=== PATIENT | male | born 1955 | race Caucasian/White ===

== ENCOUNTER 2018-08-14 17:56 | Emergency (ER) | payer MEDICARE ==
[2018-08-14 19:24] LABS: #Basophils 0.1 thou/uL (0.0-0.2); #Eosinphils 0.2 thou/uL (0.0-0.7); #Lymphocytes 1.6 thou/uL (1.20-3.40); #Monocytes 0.8 thou/uL (0.11-0.59); #Neutrophils 7.4 thou/uL (1.40-6.50); %Basophils 1.1 % (0.0-1.0); %Lymphocytes 15.7 % (21.0-51.0); %Monocytes 7.5 % (0.0-10.0); %Neutrophils 73.7 % (42.0-75.0); Hemoglobin 15.5 g/dL (14.0-18.0); Mean Corpuscular HGB CONC 33.3 g/dL (32.0-36.0); Mean Corpuscular Hemoglobin 30.7 pg (27.0-31.0); Mean Corpuscular Volume 92.3 fL (78.0-98.0); Mean Platelet Volume 6.9 fL (7.4-10.4); Platelet Count 398 thou/uL (130-400); RBC Distribution Width 11.6 % (11.5-14.5); Red Blood Cell (RBC) Count 5.04 mill/uL (4.70-6.10)
[2018-08-14 19:40] LABS: ALT (SGPT) 16 U/L (8-55); AST (SGOT) 13 U/L (5-34); Albumin 4.1 g/dL (3.4-4.8); Alkaline Phosphatase 100 U/L (40-150); Anion Gap 14 mmol/L (10-20); BUN (Urea Nitrogen) 12 mg/dL (8.4-25.7); Bilirubin, Total 0.2 mg/dL (0.2-1.2); Calc. Creatinine Clearance 0 mL/min (70-130); Calcium 10.1 mg/dL (7.8-10.44); Carbon Dioxide 30 mmol/L (23-31); Chloride 100 mmol/L (98-107); Estimated GFR-MDRD 77; Globulin 3.5 g/dL (2.4-3.5); Glucose 100 mg/dL (80-115); Lipase 121 U/L (8-78); Potassium 4.5 mmol/L (3.5-5.1); Protein, Total 7.6 g/dL (5.8-8.1); Sodium 139 mmol/L (136-145)
[2018-08-14 20:50] LABS: Bilirubin Negative (Negative); Blood, Urine Negative (Negative); Clarity Clear (Clear); Glucose, Urine (Dipstick) Negative (Negative); Leukocyte Negative (Negative); Nitrite Negative (Negative); Protein, Urine (Dipstick) Negative (Neg-Trace); Specific Gravity, Urine 1.015 (1.005-1.030); Urobilinogen 0.2 mg/dL (0.2-1.0)
[2018-08-14] MEDS ORDERED: Ondansetron PF 4 MG/2 ML Vial ONE (21:15)
--- NOTE | 2018-08-14 21:28 | CT ---
FEXAM: CT abdomen and pelvis with IV contrast PROVIDED CLINICAL HISTORY: Abdominal pain COMPARISON: None FINDINGS: The visualized lung bases are free of significant opacity. There is conspicuous and somewhat irregular apparent mucosal thickening involving the body of the sto mach. There are several areas of mucosal ulceration, the largest of which is located along the greate r curvature of the stomach distally and approximates the serosal surface. There is stranding of the f at immediately adjacent to this and lack of a distinct fat plane between the stomach and the adjacent distal transverse colon. There is no evidence for extraluminal gas or a intraperitoneal fluid collec tion. There are numerous peritoneal based soft tissue masses present within the abdomen, the largest of whi ch is located within the greater omentum right of midline and measures at least 8.4 cm in transverse dimension and at least 3.3 cm in AP dimension. There is a small amount of free pelvic fluid. There is a primarily fat containing right inguinal hernia. Soft tissue density within the herniated f at is of uncertain etiology, measuring approximately 1.1 cm and possibly reflecting a metastatic depo sit. The liver, spleen, pancreas, kidneys and adrenal glands demonstrate an unremarkable CT appearance. Vascular calcifications are noted involving the abdominal aorta and its branches. The osseous structu res demonstrate no concerning lytic or blastic lesions. Lumbar spine degenerative changes are seen. IMPRESSION: 1. Irregular apparent mucosal thickening involving the stomach as described above with associated foc i of ulceration compatible with malignancy. The largest focus of ulceration approximates the serosal surface without definite evidence for perforation. There is an indistinct fat plane between the adjac ent transverse colon and gastrocolic fistula cannot be excluded. 2. Peritoneal metastatic disease. 3. Small fat-containing right inguinal hernia.
== END 2018-08-14 21:54 | disposition home or self-care (01) ==
LOC: SCSER 17:56
DX: K40.90 Unilateral inguinal hernia, without obstruction or gangrene, not specified as recurrent (principal); C78.6 Secondary malignant neoplasm of retroperitoneum and peritoneum; F17.210 Nicotine dependence, cigarettes, uncomplicated
CPT/HCPCS: 36415; 74177; 80053; 81003; 83690; 85025; 93005; 96361; 96374; J2405

== ENCOUNTER 2018-08-27 14:55 | Outpatient (CLI) | payer MEDICARE ==
[~2018-08-27 14:55] MED LIST: Iopamidol 370 76% 100 ML VIAL ONE
--- NOTE | 2018-08-27 15:52 | CT ---
EXAM: CT of the chest with contrast HISTORY: Gastric neoplasm with metastatic disease. COMPARISON: CT abdomen/pelvis 08/14/2018 TECHNIQUE: Multiple contiguous axial images were obtained in a CT the chest with contrast. Coronal re formats were performed. FINDINGS: HEART: Normal in size without focal cardiac abnormality MEDIASTINUM: No hilar or mediastinal lymphadenopathy. LUNGS: No focal infiltrates or masses. A calcified granuloma is seen in the lingula. No suspicious pu lmonary nodules are identified. PLEURAL SPACE: No pneumothorax or pleural effusion. CHEST WALL SOFT TISSUES: Unremarkable OSSEOUS STRUCTURES: Degenerative changes in the spine. VISUALIZED SUBDIAPHRAGMATIC STRUCTURES: Please see CT from 08/14/2018 for findings below the diaphragm. IMPRESSION: No evidence of intrathoracic metastatic disease.
== END 2018-08-27 14:56 | disposition home or self-care (01) ==
LOC: BICCT 14:55
PROVIDERS: ATTEND Internal Medicine Hematology & Oncology
DX: C80.1 Malignant (primary) neoplasm, unspecified (principal); C79.9 Secondary malignant neoplasm of unspecified site
CPT/HCPCS: 71260

== ENCOUNTER 2018-09-05 12:30 | Day surgery (SDC) | payer MEDICARE ==
[2018-09-04 17:42] VITALS: BMI 25.0
[2018-09-05 13:27] LABS: #Eosinphils 0.4 thou/uL (0.0-0.7); #Lymphocytes 1.8 thou/uL (1.20-3.40); #Monocytes 0.7 thou/uL (0.11-0.59); #Neutrophils 5.6 thou/uL (1.40-6.50); %Basophils 0.6 % (0.0-1.0); %Eosinophils 5.1 % (0.0-10.0); %Lymphocytes 21.5 % (21.0-51.0); %Monocytes 7.7 % (0.0-10.0); %Neutrophils 65.2 % (42.0-75.0); Hemoglobin 14.7 g/dL (14.0-18.0); Mean Corpuscular Hemoglobin 31.5 pg (27.0-31.0); Mean Corpuscular Volume 95.3 fL (78.0-98.0); Mean Platelet Volume 6.9 fL (7.4-10.4); Platelet Count 353 thou/uL (130-400); RBC Distribution Width 11.7 % (11.5-14.5); Red Blood Cell (RBC) Count 4.67 mill/uL (4.70-6.10); White Blood Cell (WBC) Count 8.5 thou/uL (4.8-10.8)
[2018-09-05 13:46] LABS: Anion Gap 13 mmol/L (10-20); BUN (Urea Nitrogen) 13 mg/dL (8.4-25.7); Calc. Creatinine Clearance 69 mL/min (70-130); Calcium 9.9 mg/dL (7.8-10.44); Carbon Dioxide 31 mmol/L (23-31); Chloride 99 mmol/L (98-107); Estimated GFR-MDRD 67; Glucose 90 mg/dL (80-115); Potassium 4.6 mmol/L (3.5-5.1); Sodium 138 mmol/L (136-145)
[2018-09-05] MEDS ORDERED: Fentanyl 100 MCG/2 ML VIAL ONE ×3 (14:26→16:09)
[2018-09-05] MEDS ORDERED: Bupivacaine/Epinephrine 0.25% 30 ML VIAL ONE (14:27)
[2018-09-05] MEDS ORDERED: PHENYLEPHRINE-NS 100 MCG/ML 10 ML SYRINGE ONE (15:56)
[2018-09-05] MEDS ORDERED: Rocuronium Bromide 10 MG/ML (10ML VIAL) ONE (15:56)
[2018-09-05] MEDS ORDERED: PROPOFOL 200 MG/20 ML VIAL ONE (15:56)
[2018-09-05] MEDS ORDERED: Lidocaine 1% PF 5 ML VIAL ONE (15:56)
[2018-09-05] MEDS ORDERED: Ketorolac Tromethamine 30 MG/ML VIAL ONE (15:56)
[2018-09-05] MEDS ORDERED: Glycopyrrolate 0.2 MG/ML 5 ML SYRINGE ONE (15:56)
[2018-09-05] MEDS ORDERED: HYDROcodone/Acetaminophen 5/325 mg Tablet ONE (17:00)
--- NOTE | 2018-09-06 21:02 | OP ---
DATE OF PROCEDURE: 09/05/2018 PREOPERATIVE DIAGNOSIS: Abdominal carcinomatosis. POSTOPERATIVE DIAGNOSIS: Abdominal carcinomatosis. PROCEDURE PERFORMED: Laparoscopic partial omentectomy and biopsy of omental mass. ANESTHESIA: General. ESTIMATED BLOOD LOSS: Minimal. COMPLICATIONS: None. SPECIMEN: Omental mass. DESCRIPTION OF PROCEDURE: The patient was taken to the operating room and laid supine on the operating room table. After general anesthetic was obtained, a Serrano was placed. The abdomen was shaved, prepped, and draped in a sterile fashion. A curved incision was made below the umbilicus. Cautery was dissected down to and scored the fascia. Abdominal cavity was entered bluntly using a Valentina clamp. A 5 mm trocar was placed and high-flow pneumoperitoneum was obtained. Left and right abdominal 5 mm ports were placed as well. There was an adhesion to the posterior umbilicus. This adhesion was taken down exposing a tumor nodule at the umbilicus. This was able to be removed through the umbilical port site. There was a large mass-like effect over the proximal transverse colon in the right upper quadrant, but there were some smaller nodules present along the mid transverse colon and omentum. This was taken using the LigaSure, placed in an EndoCatch bag and brought out through the umbilical incision. There was no ongoing bleeding. All port sites were infiltrated using local anesthetic. All ports were removed under camera visualization. Pneumoperitoneum was let down. Maxon used to close the fascial defect below the umbilicus. All incisions were irrigated and closed using 4-0 Monocryl and Dermabond. The patient was sent to Recovery in stable condition. All instrument counts, needle counts, lap counts were correct. Job ID: [id number]
== END 2018-09-05 17:30 | disposition home or self-care (01) ==
LOC: SDC 12:30
PROVIDERS: ATTEND Surgery
PROC: 0DBU4ZX Excision of Omentum, Percutaneous Endoscopic Approach, Diagnostic (ICD-10-PCS; principal; 2018-09-05)
DX: C48.1 Malignant neoplasm of specified parts of peritoneum (principal); F17.210 Nicotine dependence, cigarettes, uncomplicated; Z79.899 Other long term (current) drug therapy; Z88.2 Allergy status to sulfonamides
CPT/HCPCS: 80048; 85025; 88305; 88341; 88342; 88360; J0690; J1885; J2001; J2704; J3010

== ENCOUNTER 2018-09-13 09:57 | Outpatient (CLI) | payer MEDICARE ==
--- NOTE | 2018-09-13 13:50 | PET ---
EXAM: PET/CT HISTORY: Gastric cancer. Initial staging TECHNIQUE: PET scanning with CT attenuation correction was performed from the base of the brain to the proximal thighs following the intravenous administration of 11 millicuries [id number]-[id number]. COMPARISON: None. CORRELATION: CT abdomen and pelvis of 08/14/[address] chest of 08/27/2018 FINDINGS: Focally increased uptake is seen in the stomach with an SUV of 5.3 likely due to known gastric malign glen No alba hypermetabolism is seen in the neck chest or axillae. There are hypermetabolic lymph nodes i n the abdomen and pelvis with maximum SUVs of 6 in the left para-aortic, 6.6 in the right common iliac, 7.6 in the left common iliac, 6.2 in the right external iliac, 6 in the left external iliac an d 5 in the right inguinal lymph nodes. Foci of increased uptake in the omentum are seen with a maximum SUV of 9. This is consistent with per itoneal carcinomatosis. No hypermetabolic pulmonary nodules, liver, adrenal or skeletal lesions are seen. There is physiologic activity in the GI and tracts and the visualized portions of the brain. The CT scan used for attenuation correction demonstrates no evidence of pleural effusions or ascites. IMPRESSION: Gastric malignancy with peritoneal carcinomatosis and lymph alba metastases in the abdomen and pelvi s
== END 2018-09-13 09:58 | disposition home or self-care (01) ==
LOC: PET 09:57
PROVIDERS: ATTEND Internal Medicine Hematology & Oncology
DX: C16.9 Malignant neoplasm of stomach, unspecified (principal); C78.6 Secondary malignant neoplasm of retroperitoneum and peritoneum; C77.2 Secondary and unspecified malignant neoplasm of intra-abdominal lymph nodes
CPT/HCPCS: 78815; A9552

== ENCOUNTER 2018-09-17 11:23 | Day surgery (SDC) | payer MEDICARE ==
[2018-09-14 17:18] VITALS: BMI 24.7
[~2018-09-17 11:23] MED LIST changes: +Bupivacaine/Epinephrine 0.25% 30 ML VIAL ONE; -Iopamidol 370 76% 100 ML VIAL ONE; +Lidocaine 2% PF 5 ML VIAL ONE
[2018-09-17] MEDS ORDERED: PROPOFOL 20 ML ONE (11:42)
[2018-09-17] MEDS ORDERED: Fentanyl 100 MCG/2 ML VIAL ONE (11:43)
--- NOTE | 2018-09-17 13:09 | RAD ---
Portable frontal chest radiograph: 09/17/2018 COMPARISON: None HISTORY: Evaluate chest following Med-a-Port placement FINDINGS: Right Port-A-Cath noted, distal tip overlying the cavoatrial junction. No pneumothorax. Pato gs appear clear. IMPRESSION: Right-sided Port-A-Cath. No pneumothorax.
[2018-09-17] MEDS ORDERED: Lidocaine 1% PF 5 ML VIAL ONE (13:30)
[2018-09-17] MEDS ORDERED: PROPOFOL 200 MG/20 ML VIAL ONE (13:30)
--- NOTE | 2018-09-17 18:55 | OP ---
DATE OF PROCEDURE: 09/17/2018 PREOPERATIVE DIAGNOSIS: Gastric cancer. POSTOPERATIVE DIAGNOSIS: Gastric cancer. PROCEDURE PERFORMED: Tunneled central line and subcutaneous port (MediPort, CT injectable). ANESTHESIA: General. ESTIMATED BLOOD LOSS: Minimal. COMPLICATIONS: None. SPECIMEN: None. FINDINGS: Tip of the catheters was at atriocaval junction. DESCRIPTION OF PROCEDURE: The patient was taken to the operating room and laid supine on the operating room table. After sedation was obtained, bilateral neck and chest were prepped and draped in a sterile fashion. Local anesthetic was infiltrated over the right internal jugular vein. Internal jugular vein cannulated using a 22-gauge finder needle followed by a Seldinger needle. Wire was passed into superior vena cava under fluoro guidance. A small evangelist was made at the wire entrance site and a separate 3 cm incision made in the right upper chest. Subcutaneous pocket made below the lower incision. Tubing for the MediPort tunneled from the inferior to superior incision. Introducer sheath placed over the wire into the superior vena cava under fluoro guidance. The dilator and wire were removed. The end of the catheter sewed into the sheath. The sheath was peeled away. The tip of the catheter was at the atriocaval junction. MediPort tubing was cut to fit the MediPort at the lower incision, and connected to the MediPort, which was sewn to the chest wall in the subcutaneous pocket using Prolene. The MediPort draws blood and flushes without difficulty. It was flushed with a heparin flush. The wounds were closed using 3-0 Vicryl, 4-0 Monocryl, and Dermabond. The patient was then returned to Recovery in stable condition. All instrument counts, needle counts, and lap counts were correct. Job ID: [id number]
== END 2018-09-17 13:15 | disposition home or self-care (01) ==
LOC: SDC 11:23
PROVIDERS: ATTEND Surgery
PROC: 0JH63WZ Insertion of Totally Implantable Vascular Access Device into Chest Subcutaneous Tissue and Fascia, Percutaneous Approach (ICD-10-PCS; principal; 2018-09-17)
DX: C16.9 Malignant neoplasm of stomach, unspecified (principal); Z88.2 Allergy status to sulfonamides; Z79.891 Long term (current) use of opiate analgesic; Z79.899 Other long term (current) drug therapy
CPT/HCPCS: 36561; 71045; C1788; J0690; J1642; J2001; J2704; J3010

== ENCOUNTER 2018-12-13 12:04 | Outpatient (CLI) | payer MEDICARE ==
--- NOTE | 2018-12-13 15:04 | PET ---
PET SCAN WITH CT ATTENUATION CORRECTION: COMPARISON: 09/13/18. HISTORY: Malignant neoplasm of the body of the stomach. Patient has undergone treatment. Evaluate for response to treatment. TECHNIQUE: PET scanning with CT attenuation correction is performed from the base of the brain to the proximal t highs following the intravenous administration of 10.5 mCi F18-FDG. FINDINGS: HEAD/NECK: No abnormal FDG localization. CHEST: No abnormal FDG localization. ABDOMEN/PELVIS: The previously noted FDG avidity involving the stomach is less evident. The previously noted FDG avid ity involving the abdominal mesentery is also less evident. CT used for attenuation correction demons trates diffuse stranding of the abdominal mesentery which is presumed to be due to post-treatment rodrigue nge. FDG avidity noted in a right inguinal hernia is no longer present. There is nonspecific bowel wa ll thickening involving the distal descending colon and sigmoid colon, incompletely evaluated. Part o f the bowel wall thickening may be due to inadequate distention. Colonoscopy if clinically warranted. No retroperitoneal mass or lymphadenopathy. No evidence of abnormal FDG avidity. OSSEOUS STRUCTURES: No abnormal FDG avidity. Bilateral pars defects at L5 without significant spondylolisthesis. IMPRESSION: 1. Evidence for response to therapy. The previously noted FDG avidity in the stomach, as well as the abdomen has significantly reduced. The previously noted evidence of peritoneal carcinomatosis is les s evident. There is no significant FDG avidity. Stranding of the abdominal mesentery may represent po st-treatment change. 2. Bowel wall thickening as described above. Consider colonoscopy if clinically warranted. POS: RICHIE
== END 2018-12-13 12:05 | disposition home or self-care (01) ==
LOC: PET 12:04
PROVIDERS: ATTEND Internal Medicine Hematology & Oncology
DX: C16.2 Malignant neoplasm of body of stomach (principal); K92.89 Other specified diseases of the digestive system
CPT/HCPCS: 78815; A9552

== ENCOUNTER 2019-03-08 08:41 | Outpatient (CLI) | payer MEDICARE ==
--- NOTE | 2019-03-08 13:17 | PET ---
PET CT: HISTORY: A 63-year-old male with gastric cancer. Patient undergoing chemotherapy. Exam requested to evaluate r esponse to treatment. COMPARISON: PET CTs from 12/13/2018 and 09/13/2018. TECHNIQUE: PET scanning with CT attenuation correction was performed from the base of the brain through the prox imal thighs following the intravenous administration of 13 millicuries F18 fluorodeoxyglucose in the right-sided Mediport. FINDINGS: No alba hypermetabolism is noted in the neck, chest, axillae, abdomen, pelvis or inguinal regions. P reviously noted foci of increase uptake in the omentum have resolved. No hypermetabolic pulmonary nodules or liver, adrenal or skeletal lesions are seen. There is physiol ogic activity in the GI and tracts and in the visualized portions of the brain. The CT scan used for attenuation correction demonstrates no evidence of pericardial or pleural effusi ons or ascites. IMPRESSION: No evidence of metastatic disease. POS: RICHIE
== END 2019-03-08 08:42 | disposition home or self-care (01) ==
LOC: PET 08:41
PROVIDERS: ATTEND Internal Medicine Hematology & Oncology
DX: C16.9 Malignant neoplasm of stomach, unspecified (principal)
CPT/HCPCS: 78815; A9552

== ENCOUNTER 2019-06-04 11:52 | Observation (INO) | payer MEDICARE ==
[~2019-06-04 11:52] MED LIST changes: -Bupivacaine/Epinephrine 0.25% 30 ML VIAL ONE; +Esmolol 100 MG/10 ML VIAL ONE; +Labetalol HCl 100 MG/20 ML VIAL ONE; +Lidocaine 1% PF 5 ML VIAL ONE; -Lidocaine 2% PF 5 ML VIAL ONE; +Ondansetron PF 4 MG/2 ML Vial ONE; +PHENYLEPHRINE-NS 100 MCG/ML 10 ML SYRINGE ONE; +PROPOFOL 200 MG/20 ML VIAL ONE; +Rocuronium Bromide 10 MG/ML (10ML VIAL) ONE; +ePHEDrine/0.9% NaCl/PF SYRINGE 50 mg/10 ml ONE
[2019-06-04] MEDS ORDERED: HYDROmorphone 0.5 MG/0.5 ML SYRINGE ONE (13:03)
[2019-06-04] MEDS ORDERED: Fentanyl 100 MCG/2 ML VIAL ONE ×3 (13:03→15:49)
[2019-06-04] MEDS ORDERED: Sodium Chloride 0.9% 100 ML ONE (13:10)
[2019-06-04] MEDS ORDERED: cefTRIAXone\\ROCEPHIN 2 GM VIAL ONE (13:10)
[2019-06-04 14:12] LABS: #Basophils 0.1 thou/uL (0.0-0.2); #Lymphocytes 1.1 thou/uL (1.20-3.40); #Monocytes 0.5 thou/uL (0.11-0.59); #Neutrophils 6.7 thou/uL (1.40-6.50); %Basophils 1.2 % (0.0-1.0); %Eosinophils 0.4 % (0.0-10.0); %Lymphocytes 13.3 % (21.0-51.0); %Monocytes 5.9 % (0.0-10.0); %Neutrophils 79.1 % (42.0-75.0); Hemoglobin 13.8 g/dL (14.0-18.0); Mean Corpuscular HGB CONC 33.9 g/dL (32.0-36.0); Mean Corpuscular Hemoglobin 34.9 pg (27.0-31.0); Mean Platelet Volume 6.9 fL (7.4-10.4); Platelet Count 266 thou/uL (130-400); RBC Distribution Width 12.5 % (11.5-14.5); Red Blood Cell (RBC) Count 3.96 mill/uL (4.70-6.10); White Blood Cell (WBC) Count 8.5 thou/uL (4.8-10.8)
[2019-06-04] MEDS ORDERED: Hyoscyamine Sulfate SL 0.125 mg Tablet ONE (14:12)
[2019-06-04 14:19] LABS: PTT 27.8 SEC (22.9-36.1); Prothrombin Time 12.9 SEC (12.0-14.7)
[2019-06-04 14:22] LABS: Anion Gap 13 mmol/L (10-20); BUN (Urea Nitrogen) 12 mg/dL (8.4-25.7); Calc. Creatinine Clearance 0 mL/min (70-130); Calcium 9.2 mg/dL (7.8-10.44); Carbon Dioxide 26 mmol/L (23-31); Chloride 106 mmol/L (98-107); Estimated GFR-MDRD Greater than 90; Glucose 98 mg/dL (80-115); Potassium 3.7 mmol/L (3.5-5.1); Sodium 141 mmol/L (136-145)
[2019-06-04] MEDS ORDERED: hydrALAZINE 20 MG/ML VIAL SLOW IVP PRN ×2 (15:08)
[2019-06-04] MEDS ORDERED: Morphine 2 MG/ML SYRINGE SLOW IVP PRN (15:08)
[2019-06-04] MEDS ORDERED: Mag-Al 1200 mg/1200 mg/30 ML UDCUP PO PRN (15:08)
[2019-06-04] MEDS ORDERED: Zolpidem Tartrate 5 MG TAB PO PRN (15:08)
[2019-06-04] MEDS ORDERED: Hyoscyamine Sulfate SL 0.125 mg Tablet SL PRN (15:08)
[2019-06-04] MEDS ORDERED: Phenazopyridine HCl 97.5 MG TABLET PO PRN (15:08)
[2019-06-04] MEDS ORDERED: Morphine 4 MG/ML VIAL SLOW IVP PRN (15:08)
[2019-06-04] MEDS ORDERED: diphenhydrAMINE 50 MG/ML VIAL IVP PRN (15:08)
[2019-06-04] MEDS ORDERED: HYDROcodone/Acetaminophen 7.5/325 mg Tablet PO PRN ×2 (15:08)
[2019-06-04] MEDS ORDERED: Bisacodyl 10 MG SUPP PR PRN (15:08)
[2019-06-04] MEDS ORDERED: HYDROmorphone 2 MG/ML VIAL SLOW IVP PRN (15:15)
[2019-06-04] MEDS ORDERED: Promethazine HCl 25 MG/ML VIAL SLOW IVP PRN (15:15)
[2019-06-04] MEDS ORDERED: PACU-Morphine 4MG/ML VIAL SLOW IVP PRN (15:15)
[2019-06-04] MEDS ORDERED: Promethazine HCl 25 MG/ML VIAL IM PRN (15:15)
[2019-06-04] MEDS ORDERED: Ondansetron HCl/PF 4 MG/2 ML Vial IVP PRN (15:15)
[2019-06-04] MEDS ORDERED: hydrALAZINE 20 MG/ML VIAL ONE (15:35)
[2019-06-04] MEDS ORDERED: Morphine 4 MG/ML VIAL ONE (15:40)
[2019-06-04] MEDS ORDERED: Morphine 2 MG/ML SYRINGE ONE ×2 (15:43→16:06)
[2019-06-04] MEDS: Sodium Chloride 0.9% 1,000 ML IV SCH (17:30)
[2019-06-04 18:47] VITALS: BMI 22.1
[2019-06-04] MEDS: Famotidine/PF 20 mg/2ml Vial SLOW IVP SCH (20:18)
[2019-06-04] MEDS: Docusate 100 MG CAP PO SCH (20:19)
--- NOTE | 2019-06-04 22:04 | OP ---
DATE OF PROCEDURE: 06/04/2019 PREOPERATIVE DIAGNOSES: 1. Mr. Valentino is a 64-year-old male with metastatic gastric cancer with ongoing chemotherapy. 2. History of tobacco abuse. 3. Newly appreciated gross hematuria with bladder tumor. PROCEDURES PERFORMED: Cystoscopy, transurethral resection of bladder tumor, fulguration of bleed. ANESTHESIA: General. IV FLUIDS: About 1 L. ESTIMATED BLOOD LOSS: Minimal. SPECIMEN: TUR from superficial and deep. INTRAOPERATIVE FINDINGS: No significant BPH. Anterior dome bladder tumor. Surface area about 5 cm suspicious for transitional cell carcinoma, possible carcinoma in situ. No other bladder lesions seen. INDICATIONS FOR PROCEDURE AND HISTORY: Mr. Valentino is a 64-year-old male, who was seen in my office today as a work-in as I received a phone call from his oncologist, Dr. Rodriguez. The patient was being seen by Medical Oncology for ongoing maintenance of 5-FU for his metastatic gastric cancer, currently improving with chemotherapy. He does have a significant history of tobacco abuse, and presents with about a week of gross hematuria. He has passed small clots, presented to my office with gross hematuria, tomato red. I did place a Serrano catheter at bedside demonstrating no clots per se; however, cystoscopy was performed in the office demonstrating likely bladder tumor in the posterior wall. Therefore, he was transitioned to the hospital for cysto, TURBT, fulguration of bleed. Risks and complications of the procedure were reviewed with him in detail including, but not limited to, bleeding, pain, infection, injury to adjacent organs, urosepsis, bladder perforation, injury to adjacent organs. All questions were answered to satisfaction, he desired to proceed. DESCRIPTION OF PROCEDURE: After an informed consent was signed, the patient taken to the operating room, placed in a dorsal lithotomy position with the genital area prepped and draped in the usual surgical sterile fashion. Broad-spectrum antibiotics were provided and a 21-Faroese cystoscope was utilized for cystoscopy , which demonstrated normal anterior and posterior urethra. Prostatic urethra demonstrated coapting lateral lobes, minimal BPH with no significant outlet obstruction per se. Bladder was entered, which demonstrated mild trabeculation. The UOs are identified in normal anatomical location. At the junction of the anterior bladder wall, just encroaching the dome of the bladder was a large surface area about 5 cm demonstrating papillary lesion, it appeared to be sessile, flat, suspicious for TCC, possible CIC component. Oozing from the tumor site was noted. We took our time resecting the bladder tumor gingerly, given the location of anterior bladder wall and dome as there is high risk of perforation. I resected the tumor, flushed the bladder mucosa, adequate hemostasis was obtained. We sent a specimen superficial and deep separately. I did not aggressively resect the tumor into the bladder wall, as it is anterior dome, moreover, a CT staging has not been obtained as he presented emergently to my office as I do not know the extent of extravesical disease. Nevertheless, the tumor surface area was resected successfully, with good hemostasis. A 22-Faroese three-way 30 mL Serrano catheter was replaced on CBI. CBI port is plugged for now. We will monitor him for degree of hematuria. He has no significant acute anemia of concern. I will watch the patient overnight with indwelling Serrano catheter. CBI needed. If no significant hematuria of concern tomorrow, anticipate he will be discharged tomorrow. Job ID: [id number] [facility]
[2019-06-05] MEDS: Sodium Chloride 0.9% 1,000 ML IV SCH (00:58)
[2019-06-05 05:34] LABS: #Eosinphils 0.1 thou/uL (0.0-0.7); #Lymphocytes 1.3 thou/uL (1.20-3.40); #Monocytes 0.7 thou/uL (0.11-0.59); #Neutrophils 6.1 thou/uL (1.40-6.50); %Basophils 0.2 % (0.0-1.0); %Eosinophils 0.9 % (0.0-10.0); %Lymphocytes 16.2 % (21.0-51.0); %Monocytes 8.8 % (0.0-10.0); Hemoglobin 11.7 g/dL (14.0-18.0); Mean Corpuscular HGB CONC 33.2 g/dL (32.0-36.0); Mean Corpuscular Hemoglobin 34.3 pg (27.0-31.0); Mean Platelet Volume 6.8 fL (7.4-10.4); Platelet Count 214 thou/uL (130-400); RBC Distribution Width 12.6 % (11.5-14.5); Red Blood Cell (RBC) Count 3.42 mill/uL (4.70-6.10); White Blood Cell (WBC) Count 8.3 thou/uL (4.8-10.8)
[2019-06-05 05:54] LABS: Anion Gap 12 mmol/L (10-20); BUN (Urea Nitrogen) 10 mg/dL (8.4-25.7); Calc. Creatinine Clearance 86 mL/min (70-130); Carbon Dioxide 24 mmol/L (23-31); Chloride 107 mmol/L (98-107); Estimated GFR-MDRD Greater than 90; Glucose 93 mg/dL (80-115); Potassium 3.5 mmol/L (3.5-5.1); Sodium 139 mmol/L (136-145)
[2019-06-05] MEDS ORDERED: Tamsulosin HCl 0.4 MG CAP PO SCH (09:00)
[2019-06-05] MEDS: Docusate 100 MG CAP PO SCH (09:09)
[2019-06-05] MEDS: Famotidine/PF 20 mg/2ml Vial SLOW IVP SCH (09:12)
--- NOTE | 2019-06-05 10:39 | DIS ---
DATE OF ADMISSION: 06/04/2019 DATE OF DISCHARGE: 06/05/2019 ADMITTING DIAGNOSES: 1. Gross hematuria. 2. Bladder mass. DISCHARGE DIAGNOSES: 1. Gross hematuria. 2. Bladder mass. PROCEDURE: Postop day #1, cysto, transurethral resection of bladder tumor, fulguration of bleed. DISCHARGE MEDICATIONS: 1. Ciprofloxacin 500 mg one p.o. b.i.d. 2. Colace 100 mg one p.o. b.i.d. 3. Oxybutynin 10 mg one p.o. daily. Advised regarding no aspirin and ibuprofen products. BRIEF HOSPITAL COURSE: Mr. Valentino is a pleasant 64-year-old male with history of metastatic gastric cancer, undergoing chemotherapy. He presented to his oncologist with gross hematuria history. Work-in appointment provided demonstrating significant gross hematuria and local cystoscopy demonstrating bladder mass. He was taken to the operating room and underwent cysto, TURBT of an anterior dome bladder tumor. His Serrano catheter is mary kay clear. He is hemodynamically stable. Condition stable to be discharged. DISPOSITION: To home with self-care, Serrano catheter to gravity. CONDITION: Stable. Job ID: [id number]
[2019-06-05 11:35] VITALS: BP 142/73; TEMP 98.6
[2019-06-05] MEDS ORDERED: cefTRIAXone\\ROCEPHIN 1 GM in Sodium Chloride 0.9% 100 ML IVPB SCH (13:00)
== END 2019-06-05 14:25 | disposition home or self-care (01) ==
LOC: SDC 11:52 → SURG A 17:21 → INTOOBSV 17:21
PROVIDERS: ADMIT Urology; ATTEND Urology
PROC: 0TBB8ZX Excision of Bladder, Via Natural or Artificial Opening Endoscopic, Diagnostic (ICD-10-PCS; principal; 2019-06-04)
DX: D49.4 Neoplasm of unspecified behavior of bladder (principal); N32.89 Other specified disorders of bladder; C16.9 Malignant neoplasm of stomach, unspecified; C79.9 Secondary malignant neoplasm of unspecified site; F17.210 Nicotine dependence, cigarettes, uncomplicated; N40.0 Benign prostatic hyperplasia without lower urinary tract symptoms; Z79.2 Long term (current) use of antibiotics; Z79.899 Other long term (current) drug therapy; Z88.2 Allergy status to sulfonamides
CPT/HCPCS: 52235; 80048 ×2; 80053; 82248; 82378; 83615; 84100; 84550; 85025 ×2; 85610; 85730; 86850; 86900; 86901; 86920; 88307; 96374; 96375; 96376; G0378 ×2; 36415; J0360; J0696; J1170; J1642; J2001; J2270; J2405; J2704; J3010; J3490; S0028

== ENCOUNTER 2019-06-07 09:47 | Outpatient (CLI) | payer MEDICARE ==
--- NOTE | 2019-06-07 13:49 | PET ---
Radionucleotide PET scan with CT attenuation correction HISTORY: Malignant neoplasm of the body of the stomach. COMPARISON: 03/08/2019. FINDINGS: Physiologic uptake of radiotracer throughout the enteric system and along each urinary trac t. No abnormal areas of radiotracer uptake are evident within the liver, mesentery, or elsewhere. Nondiagnostic CT attenuation correction images show a small hyperdense stone in the dependent portion of the gallbladder lumen. Calcified granulomata the lungs are consistent with healed granulomatous disease. Nonenlarged, nonspecific lymph nodes are present throughout the retroperitoneum. Bilateral p ars interarticularis defects are apparent at the lumbosacral junction. IMPRESSION: No evidence of recurrent neoplasm. Cholelithiasis.
== END 2019-06-07 09:48 | disposition home or self-care (01) ==
LOC: PET 09:47
PROVIDERS: ATTEND Internal Medicine Hematology & Oncology
DX: C16.2 Malignant neoplasm of body of stomach (principal); C79.9 Secondary malignant neoplasm of unspecified site; K80.20 Calculus of gallbladder without cholecystitis without obstruction
CPT/HCPCS: 78815; A9552

== ENCOUNTER 2019-07-01 07:44 | Outpatient (CLI) | payer MEDICARE ==
[2019-07-01 12:42] LABS: Hemoglobin 13.2 g/dL (14.0-18.0); Mean Corpuscular Hemoglobin 34.9 pg (27.0-31.0); Mean Platelet Volume 6.6 fL (7.4-10.4); Platelet Count 331 thou/uL (130-400); RBC Distribution Width 12.3 % (11.5-14.5); Red Blood Cell (RBC) Count 3.79 mill/uL (4.70-6.10); White Blood Cell (WBC) Count 5.7 thou/uL (4.8-10.8)
[2019-07-01 12:49] LABS: Bacteria/HPF None Seen HPF (None Seen); Bilirubin Negative (Negative); Blood, Urine Trace (Negative); Clarity Clear (Clear); Glucose, Urine (Dipstick) Normal (Negative); INR-International Normal Ratio 0.9; Leukocyte Negative Leu/uL (Negative); Nitrite Negative (Negative); PTT 30.1 SEC (22.9-36.1); Protein, Urine (Dipstick) 20 mg/dL (Neg-Trace); Prothrombin Time 12.6 SEC (12.0-14.7); Squamous Epithelial None Seen HPF (0-3); Urobilinogen Normal mg/dL (Less than 2); WBC/HPF None Seen HPF (0-3)
[2019-07-01 13:35] LABS: Anion Gap 13 mmol/L (10-20); BUN (Urea Nitrogen) 11 mg/dL (8.4-25.7); Calc. Creatinine Clearance 0 mL/min (70-130); Calcium 9.2 mg/dL (7.8-10.44); Carbon Dioxide 29 mmol/L (23-31); Chloride 100 mmol/L (98-107); Estimated GFR-MDRD Greater than 90; Glucose 76 mg/dL (80-115); Potassium 3.9 mmol/L (3.5-5.1); Sodium 138 mmol/L (136-145)
--- NOTE | 2019-07-01 16:50 | EKG ---
Test Reason : Blood Pressure : / mmHG Vent. Rate : 066 BPM Atrial Rate : 066 BPM P-R Int : 152 ms QRS Dur : 086 ms QT Int : 424 ms P-R-T Axes : 052 054 051 degrees QTc Int : 444 ms Normal sinus rhythm Cannot rule out Anterior infarct , age undetermined Abnormal ECG Confirmed by OSBALDO BERGERON ([id number]) on 07/01/2019 4:49:40 PM Referred By: PAYAL Confirmed By:OSBALDO BERGERON
== END 2019-07-01 07:45 | disposition home or self-care (01) ==
LOC: LABBT 07:44
PROVIDERS: ATTEND Urology
DX: Z01.818 Encounter for other preprocedural examination (principal); D49.4 Neoplasm of unspecified behavior of bladder; C16.9 Malignant neoplasm of stomach, unspecified; R31.0 Gross hematuria; R63.4 Abnormal weight loss; Z72.0 Tobacco use
CPT/HCPCS: 80048; 81001; 85027; 85610; 85730; 87086; 93005; 93010

== ENCOUNTER 2019-07-01 08:49 | Outpatient (CLI) | payer MEDICARE ==
--- NOTE | 2019-07-01 10:59 | CT ---
CT Abdomen Pelvis W WO con HISTORY: Gastric cancer. 3 weeks ago had tumor removed from bladder. COMPARISON: PET scan study of 06/07/2019. Also review is made of a 08/14/2018 CT abdomen and pelvis. FINDINGS: The lung bases are clear. The liver spleen pancreas and gallbladder regions appear unremarkable. It is difficult to appreciate the small stones noted on previous exam within the gallbladder. Right and left adrenal glands and right and left kidneys are normal in size. No renal calculi. No mas s. Collecting systems are nondilated. There are subcentimeter periaortic lymph nodes noted. The stomach wall is thickened in appearance. Th ere are small nodes seen along the greater curvature of the stomach measuring in the 1 cm range. Prominent vessels in the gastrohepatic ligament are noted but no definite lymphadenopathy in this reg ion. The peritoneal soft tissue masses have almost completely resolved with minimal residual change remaining. There is a moderate amount of stool present within the colon. In the distal transverse as well as dis josue descending and sigmoid colon region there are areas of prominent enhancement to the mucosa and areas of wall thickening to the distal transverse colon and distal descending colon as well as sigmoi d colon no pneumatosis is noted. There is some minimal pericolonic fat stranding along the descending colon. There is some ascites present which is minimal. CT of pelvis performed with and without contrast enhancement: There is irregular bladder wall thicken ing and enhancement to the dome of the bladder. No significant pelvic lymphadenopathy is noted. There is free fluid seen within the pelvis. Review of osseous structures show no lytic or blastic change. IMPRESSION: 1. Bladder wall mass in the dome of the bladder. 2. Gastric wall thickening. Small perigastric lymph nodes are noted. The peritoneal soft tissue cynthia s have significantly reduced in size and only some small residual areas of soft tissue density remaining. 3. Moderate amount of stool present within the colon, in addition there are areas of slightly promine nt mucosal enhancement and wall thickening to the distal transverse colon and distal descending and sigmoid colon changes which would suggest a colitis. Etiology of this is unclear. Some of this could be related to radiation change. There is a small amount of ascites seen within the abdomen and pelvis.
== END 2019-07-01 08:50 | disposition home or self-care (01) ==
LOC: CT 08:49
PROVIDERS: ATTEND Urology
DX: C16.9 Malignant neoplasm of stomach, unspecified (principal); D49.4 Neoplasm of unspecified behavior of bladder; R31.0 Gross hematuria; N32.89 Other specified disorders of bladder; K63.89 Other specified diseases of intestine; K31.89 Other diseases of stomach and duodenum; R18.8 Other ascites; Z72.0 Tobacco use
CPT/HCPCS: 74178; 80048; 81001; 85027; 85610; 85730; 87086; 93005

== ENCOUNTER 2019-07-15 05:48 | Day surgery (SDC) | payer MEDICARE ==
[2019-07-12 16:11] VITALS: BMI 22.1
[2019-07-15 06:40] LABS: #Basophils 0.1 thou/uL (0.0-0.2); #Eosinphils 0.2 thou/uL (0.0-0.7); #Lymphocytes 1.3 thou/uL (1.20-3.40); #Monocytes 0.5 thou/uL (0.11-0.59); #Neutrophils 2.5 thou/uL (1.40-6.50); %Basophils 1.2 % (0.0-1.0); %Eosinophils 3.9 % (0.0-10.0); %Lymphocytes 28.1 % (21.0-51.0); %Monocytes 11.1 % (0.0-10.0); %Neutrophils 55.8 % (42.0-75.0); Hemoglobin 13.2 g/dL (14.0-18.0); Mean Corpuscular HGB CONC 33.8 g/dL (32.0-36.0); Mean Corpuscular Hemoglobin 34.3 pg (27.0-31.0); Mean Platelet Volume 6.6 fL (7.4-10.4); Platelet Count 261 thou/uL (130-400); RBC Distribution Width 12.3 % (11.5-14.5); Red Blood Cell (RBC) Count 3.84 mill/uL (4.70-6.10); White Blood Cell (WBC) Count 4.5 thou/uL (4.8-10.8)
[2019-07-15] MEDS ORDERED: Levofloxacin 500 mg/D5W 100 ml Premix Bag ONE (06:44)
[2019-07-15] MEDS ORDERED: Fentanyl 100 MCG/2 ML VIAL ONE ×4 (06:46→10:03)
[2019-07-15] MEDS ORDERED: Phenylephrine 10 MG/ML VIAL ONE (06:47)
[2019-07-15] MEDS ORDERED: SUGAMMADEX SODIUM 200 MG/2 ML VIAL ONE (06:47)
[2019-07-15] MEDS ORDERED: B & O ONE (08:12)
[2019-07-15] MEDS ORDERED: Hyoscyamine Sulfate SL 0.125 mg Tablet ONE ×2 (08:43)
[2019-07-15] MEDS ORDERED: Morphine 4 MG/ML VIAL ONE (09:02)
[2019-07-15] MEDS ORDERED: Morphine 2 MG/ML SYRINGE ONE ×4 (09:16→10:55)
--- NOTE | 2019-07-15 09:32 | OP ---
DATE OF PROCEDURE: 07/15/2019 PREOPERATIVE DIAGNOSES: 1. A 64-year-old male with history of metastatic gastric cancer with ongoing chemotherapy. 2. Gross hematuria recurrent secondary to metastatic gastric cancer to bladder dome. ANESTHESIA: LMA. COMPLICATIONS: None apparent. DISPOSITION: To recovery room in stable condition. ESTIMATED BLOOD LOSS: Minimal. IV FLUIDS: 1 L. PROCEDURES PERFORMED: Cystoscopy, fulguration of bladder tumor, Serrano catheter placement. INDICATIONS FOR PROCEDURE AND HISTORY: Mr. Valentino is a pleasant 64-year-old male , whom I had seen him emergently back in May as he presented with clot retention. He is known to have metastatic gastric cancer, undergoing chemotherapy. He developed gross hematuria, clot retention. Cystoscopy demonstrated a bladder dome lesion, which was resected and fulgurated. This unfortunately demonstrated high-grade carcinoma consistent with metastatic gastric adenocarcinoma to the bladder. He has been presented at [facility], advised regarding palliative TUR , fulguration of bleed if recurrent gross hematuria as he will undergo escalated chemotherapy for metastatic gastric cancer. He was seen on Monday as a work-in as he developed gross hematuria with passage of small clots. He had a Serrano catheter over the weekend, urine output subsequently cleared, and presents today for cysto, fulguration of bleed. DESCRIPTION OF PROCEDURE: After an informed consent was signed, the patient was taken to the operating room, placed in a dorsal lithotomy position with the genital area prepped and draped in the usual surgical sterile fashion. A 21-[place] Islander cystoscope was utilized for cystoscopy. The anterior and posterior urethra were within normal limits. There was no significant evidence of urethral stricture or BPH component obstructing. At this time, we staged his bladder demonstrating normal UOs. The UOs were well away from the bladder tumor located at the bladder dome. There was a large surface area that was previously resected with adherent necrotic debris. Surrounding erythema of the bed of the tumor bed was noted. There was no active bleeding except there was a small mucosal irritation with small amount of oozing that did not have active bleeding per se. I spent a significant amount of time fulgurating the areas of hyperemia surrounding the bladder tumor. There was necrotic tumor resected debris adherent to the previous resection site. With close observation, we can see the muscle fibers in between the necrotic tumor debris. As this was metastatic, and location of the bladder tumor with high risk of perforation, I did not further resect the necrotic tumor as it would not render him tumor free or curative. There were intermittent areas of the edges of the bladder tumor with further observation with oozing noted at the tumor bed. Care was taken not to traumatize this area as we can see the attenuated muscle fibers with discrete areas oozing noted in the lateral margin of the tumor resected site. I did spend significant amount of time fulgurating gently around the lesion. At the end of procedure, I did not see any obvious areas of oozing. I anticipate that he will continue to have intermittent hematuria as the tumor bed was hyperemic with neovascularity. A 22-[place] 30 mL Serrano catheter was replaced. CBI port plugged. I will monitor him for degree of recurrent gross hematuria. If it was acceptable resolution of hematuria, I will send him out with an indwelling Serrano catheter. We will leave the catheter in situ for about 1 week for catheter removal next week. I will inform his oncologist as I do expect and anticipate intermittent bleeding and oozing from his tumor site as he continued to have metastatic disease. Prognosis remains poor. He will be discharged with antibiotic ciprofloxacin for 7 days until followup appointment, oxybutynin for bladder spasm, Colace for constipation. Job ID: [id number] [facility]
[2019-07-15] MEDS ORDERED: PROPOFOL 200 MG/20 ML VIAL ONE (09:43)
[2019-07-15] MEDS ORDERED: PHENYLEPHRINE-NS 100 MCG/ML 10 ML SYRINGE ONE (09:43)
[2019-07-15] MEDS ORDERED: Rocuronium Bromide 10 MG/ML (10ML VIAL) ONE (09:43)
[2019-07-15] MEDS ORDERED: Ondansetron PF 4 MG/2 ML Vial ONE (09:43)
[2019-07-15] MEDS ORDERED: Lidocaine 1% PF 5 ML VIAL ONE (09:43)
[2019-07-15] MEDS ORDERED: HYDROcodone/Acetaminophen 5/325 mg Tablet ONE (10:56)
--- NOTE | 2019-07-19 06:19 | PQF ---
[facility] POST DISCHARGE CLINICAL DOCUMENTATION IMPROVEMENT CLARIFICATION FORM l Todays Date: 07/18/19 l Patients Name ANDRZEJ GRANADO l l Admit Date 07/15/19 l Disch Date 07/15/19 Senior Communications Specialist Name Benjamin Blake Email: [email or web address] Cell: [phone] To be completed by Senior Communications Specialist: Present Clinical Indicators - Signs / Symptoms Results and Location in Medical Record [ ] Documentation of: [ ] [ ] Documentation of: [ ] [ ] Documentation of: [ ] [ ] Documentation of: [ ] [ ] Risks [ ] [ ] [ ] Treatment [ ] Metastatic bladder tumor Query for size of fulgurated bladder tumors [ ] [ ] To be completed by Physician: JESSICA BLACK The documentation in this patients record requires clarification to ensure coding compliance and accuracy. Check the appropriate box and include in your discharge summary. [ ] [ ] [ ] [ ] Please check this box if this does not apply to this patient [ ] Unable to determine [ ] Other diagnosis: Review the following information and exercise your independent professional judgment in responding to the clarification. Based upon the clinical findings, risk factors, and treatment, please clarify if you are treating one of the above probable or suspected diagnoses. Physician Signature: Date Time MTDD
== END 2019-07-15 12:23 | disposition home or self-care (01) ==
LOC: SDC 05:48
PROVIDERS: ATTEND Urology
DX: C79.11 Secondary malignant neoplasm of bladder (principal); C16.9 Malignant neoplasm of stomach, unspecified; R31.0 Gross hematuria; F17.210 Nicotine dependence, cigarettes, uncomplicated; Z88.2 Allergy status to sulfonamides
CPT/HCPCS: 36415; 85025; J1642; J1956; J2001; J2270; J2370; J2405; J2704; J3010

== ENCOUNTER 2019-07-24 13:06 | Outpatient (CLI) | payer MEDICARE ==
--- NOTE | 2019-07-24 14:48 | CT ---
CT BRAIN WITHOUT CONTRAST: HISTORY: Left parietal hard scalp nodule. 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 COMPARISON: None. FINDINGS: NO evidence of infarct, hemorrhage, midline shift, or abnormal extraaxial fluid collections is seen. The ventricular size is normal and the basilar cisterns patent. The bony calvarium is intact. The visualized paranasal sinuses and mastoid air cells are well aerated. A 16 mm soft tissue nodule is seen in the right parietal scalp without involvement of the adjacent saravanan ne. IMPRESSION: 1. No CT evidence of acute intracranial process. 2. Left parietal scalp nodule. The possibility of metastatic disease cannot be excluded. POS: [facility]
== END 2019-07-24 13:07 | disposition home or self-care (01) ==
LOC: BICCT 13:06
PROVIDERS: ATTEND Internal Medicine Hematology & Oncology
DX: C16.2 Malignant neoplasm of body of stomach (principal); R22.0 Localized swelling, mass and lump, head; C67.1 Malignant neoplasm of dome of bladder; R31.9 Hematuria, unspecified
CPT/HCPCS: 70450

== ENCOUNTER 2019-09-26 09:40 | Outpatient (CLI) | payer MEDICARE ==
--- NOTE | 2019-09-26 11:26 | PET ---
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 Restaging. COMPARISON: 06/07/2019. CT abdomen/pelvis 07/01/2019. FINDINGS: Physiologic uptake of radiotracer is again demonstrated throughout the enteric system and a long each urinary tract. A small focus of increased radiotracer uptake max SUV 4.3 is present within the upper central abdomen , correlating with the liver caudate lobe on the fused images. It is immediately adjacent to the transverse colon. No other new areas of increased radiotracer uptake are evident. Nondiagnostic CT attenuation correction images again show cholelithiasis and healed granulomatous dis ease of the chest. Bilateral pars interarticularis defects again demonstrated at the lumbosacral junction. IMPRESSION : New small hypermetabolic focus centered at the caudate lobe of the liver on the fused images. Worriso me for a new metastatic lesion. Intrahepatic caudate lobe lesion versus adjacent liana hepatis lymph node. For better anatomic correlation, dedicated CT liver, without and with IV contrast, could be performed.
== END 2019-09-26 09:41 | disposition home or self-care (01) ==
LOC: PET 09:40
PROVIDERS: ATTEND Internal Medicine Hematology & Oncology
DX: C67.9 Malignant neoplasm of bladder, unspecified (principal); C16.2 Malignant neoplasm of body of stomach; C78.7 Secondary malignant neoplasm of liver and intrahepatic bile duct
CPT/HCPCS: 78815; A9552

== ENCOUNTER 2019-10-30 15:52 | Emergency (ER) | payer MEDICARE ==
--- NOTE | 2019-10-30 18:17 | ULT ---
DOPPLER ARTERIAL EVALUATION OF THE RIGHT UPPER EXTREMITY: 10/30/19 INDICATION: History of arm swelling that began yesterday following IV infiltrate at [facility]. COMPARISON: None. TECHNIQUE: Lee scale, color Doppler with spectral Doppler images were obtained of the venous structures of the right upper extremity. The right internal jugular vein, right subclavian vein, right axillary vein, r ight brachial vein, right basilic vein, right ulnar and right radial veins were assessed. The right c ephalic vein was not well seen. FINDINGS: There is echogenic material with diminished compression and flow within the right internal jugular ve in and right subclavian vein consistent with intraluminal thrombus. This is completely occlusive with in the right internal jugular vein. This is partially occlusive within the right subclavian vein. Anat ropriate flow, compression and augmentation seen within the venous structures throughout the right br achial, right basilic, right radial and ulnar venous levels. Right cephalic vein could not be identif ied. IMPRESSION: 1. Complete occlusive thrombus within the right internal jugular vein. 2. Partially occlusive thrombus within the right subclavian vein. POS: [facility]
[2019-10-30] MEDS ORDERED: Morphine 4 MG/ML VIAL ONE (19:27)
[2019-10-30] MEDS ORDERED: Promethazine HCl 25 MG/ML VIAL ONE ×2 (20:15→20:19)
== END 2019-10-30 20:56 | disposition short-term general hospital (02) ==
LOC: ERS 15:52
DX: I82.C21 Chronic embolism and thrombosis of right internal jugular vein (principal); I82.B11 Acute embolism and thrombosis of right subclavian vein; F17.210 Nicotine dependence, cigarettes, uncomplicated; Z79.899 Other long term (current) drug therapy; Z79.891 Long term (current) use of opiate analgesic; Z85.028 Personal history of other malignant neoplasm of stomach
CPT/HCPCS: 96374; 96375; J2270; J2550